=== PATIENT | male | born 1960 | race Caucasian/White ===

== ENCOUNTER 2018-07-20 09:48 | Day surgery (SDC) | payer OTHER ==
[2018-07-18 12:48] VITALS: BMI 26.5
[2018-07-20] MEDS ORDERED: PROPOFOL 20 ML ONE ×2 (10:16)
[2018-07-20 14:23] VITALS: TEMP 98.7
[2018-07-20 14:29] VITALS: BP 120/62; PULSE 95
--- NOTE | 2018-07-22 11:02 | PATH ---
Surgical Pathology Report Patient Name: DALIA FRIEDMAN [facility]. Rec. #: [id number] /Age/Gender: 1960 (Age: 57) / M Account: [id number] Location: [facility]-ENDOSCOPY Taken: 07/20/2018 Received: 07/20/2018 Reported: 07/22/2018 Physicians: Arlen Perez M.D. Specimen(s) Received A: BX DUODENUM B: BX ANTRUM C: GE JUNCTION Clinical History GERD Postoperative diagnosis: gastritis, rule out celiac disease, rule out Gomez's esophagus Final Diagnosis A. DUODENUM, BIOPSY: DUODENAL MUCOSA WITH NO PATHOLOGIC CHANGES. NO HISTOLOGIC EVIDENCE OF GLUTEN SENSITIVE ENTEROPATHY (CELIAC SPRUE) IDENTIFIED. B. STOMACH, ANTRUM, BIOPSY: GASTRIC ANTRAL MUCOSA WITH MILD REACTIVE GASTROPATHY. IMMUNOSTAIN FOR H. PYLORI IS NEGATIVE. C. GE JUNCTION, BIOPSY: GASTRIC TYPE MUCOSA WITH CHRONIC INFLAMMATION AND FOVEOLAR HYPERPLASIA, AND SQUAMOUS EPITHELIUM WITH PAPILLOMATOSIS SUGGESTIVE OF REFLUX ESOPHAGITIS. NO INTESTINAL METAPLASIA IDENTIFIED (NO GOMEZ'S IDENTIFIED). Electronically Signed Cody Curtis M.D. Gross Description A. Received in formalin, labeled "duodenum" is a bhatt, irregular portion of soft tissue measuring 0.4 cm. in greatest dimension. The specimen is submitted in toto in one cassette. B. Received in formalin, labeled "antrum" is a bhatt, irregular portion of soft tissue measuring 0.4 cm. in greatest dimension. The specimen is submitted in toto in one cassette. C. Received in formalin, labeled "GE junction" are 2 bhatt, irregular portions of soft tissue measuring 0.1 and 0.3 cm. in greatest dimension. The specimens are submitted in toto in one cassette. 07/21/2018 saudi07/21/2018
== END 2018-07-20 12:25 | disposition home or self-care (01) ==
LOC: FASU-ENDO 09:48
PROVIDERS: ATTEND Internal Medicine Gastroenterology
PROC: 0DB28ZX Excision of Middle Esophagus, Via Natural or Artificial Opening Endoscopic, Diagnostic (ICD-10-PCS; 2018-07-20)
PROC: 0DB98ZX Excision of Duodenum, Via Natural or Artificial Opening Endoscopic, Diagnostic (ICD-10-PCS; principal; 2018-07-20 11:39)
PROC: 0DB68ZX Excision of Stomach, Via Natural or Artificial Opening Endoscopic, Diagnostic (ICD-10-PCS; 2018-07-20 11:39)
DX: D64.9 Anemia, unspecified (principal); K20.8 Other esophagitis; K31.9 Disease of stomach and duodenum, unspecified
CPT/HCPCS: 88305-TC; 88342-TC